=== PATIENT | female | born 1955 | race Caucasian/White ===

== ENCOUNTER 2021-11-13 08:35 | Observation (INO) ==
--- NOTE | 2021-10-19 09:31 | PAT Medication Instructions ---
Medication Instructions Date of Service October 19, 2021 Home Medications adalimumab 40 mg/0.8 mL subcutaneous syringe kit (Humira) 40 mg SUBCUT UD folic acid 1 mg tablet 1 mg PO QAM ibuprofen 800 mg tablet 800 mg PO TID methotrexate sodium 2.5 mg tablet 15 mg PO WK cholecalciferol (vitamin D3) 50 mcg (2,000 unit) tablet (Vitamin D3) 50 mcg PO QAM diclofenac sodium 1 % topical gel 2 g TOPICAL BID PRN zinc 10 mg tablet 22 mg PO QAM ASK your surgeon for instructions ibuprofen 800 mg tablet 800 mg PO TID ASK your prescriber and surgeon adalimumab 40 mg/0.8 mL subcutaneous syringe kit (Humira) 40 mg SUBCUT UD methotrexate sodium 2.5 mg tablet 15 mg PO WK STOP taking 24 hours before surgery diclofenac sodium 1 % topical gel 2 g TOPICAL BID PRN DO NOT take the morning of surgery folic acid 1 mg tablet 1 mg PO QAM cholecalciferol (vitamin D3) 50 mcg (2,000 unit) tablet (Vitamin D3) 50 mcg PO QAM zinc 10 mg tablet 22 mg PO QAM Other Notes If you have any questions please call us at [phone] or [phone] or [phone] or [phone]
--- NOTE | 2021-10-20 11:43 | Anesthesiology Consultation ---
Date of Service October 20, 2021 Assessment & Plan (1) Encounter for pre-operative examination: - Case discussed with Dr. Aquino who advised patient is acceptable risk to proceed with surgery, does not require additional evaluation or testing at this time. - COVID screening: Per assessment on 10/20/2021: Travel screen negative, no known COVID-19 positive contacts or current COVID-19 related symptoms in past 2 weeks. Patient vaccinated. Surgeon arranging preop COVID testing, scheduled 11/11/2021. Awaiting results. Chart Review Chart Review: Acceptable Risk for Surgery and Patient seen in Pre Admission Testing Teaching & Discussion Pre-Anesthesia Teaching/Discussion Notes: Instructed NPO after midnight before surgery, except medications with 15 cc of water. Medication instructions provid ed according to the PAT guidelines. History Surgery Operation Date: 11/13/21 12:15 Proposed Procedures p Left Anterior Total Hip Arthroplasty - Bravo Marcelo, Height/Weight Height: 5 ft 7 in Weight: 87.9 kg Allergies Allergy/AdvReac Type Severity Reaction Status Date / Time latex Allergy Mild REDNESS Verified 10/15/21 09:09 ITCHY WITH GLOVES pseudoephedrine AdvReac Unknown JITTERY, Verified 10/15/21 09:09 [From Sudafe] FAST HEART RATE Medications Home Medications Medication Instructions Recorded Confirmed Last Taken adalimumab 40 mg/0.8 mL 40 mg SUBCUT UD 07/17/21 10/15/21 Unknown subcutaneous syringe kit (Humira) folic acid 1 mg tablet 1 mg PO QAM 07/17/21 10/15/21 Unknown ibuprofen 800 mg tablet 800 mg PO TID 07/17/21 10/15/21 Unknown methotrexate sodium 2.5 mg tablet 15 mg PO WK 07/17/21 10/15/21 Unknown cholecalciferol (vitamin D3) 50 50 mcg PO QAM 10/15/21 10/15/21 Unknown mcg (2,000 unit) tablet (Vitamin D3) diclofenac sodium 1 % topical gel 2 g TOPICAL BID PRN 10/15/21 10/15/21 Unknown zinc 10 mg tablet 22 mg PO QAM 10/15/21 10/15/21 Unknown tramadol 50 mg tablet 50 mg PO Q8H PRN #30 tab 10/20/21 10/20/21 Unknown Past Medical History Medical History (Updated 10/20/21 @ 12:00 by Juana Arango PA-C) Cancer NOT MELANOMA-forehead Cardiac murmur HX-DX'D AGE 19-NO CARDIOLOGY-no murmur per 03/2021 PCP note History of blood transfusion > 40 yrs ago during vaginal delivery Osteoarthritis Psoriatic arthritis 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 Exercise / Class Metabolic Activity III < 4 Walking/Shop/Light housework (SOB with 1 FOS, denies chest pain) Past Family History Family History Brother Family history of diabetes mellitus Sister Family history of diabetes mellitus Mother Family history of diabetes mellitus Past Surgical History Surgical History History of bilateral tubal ligation History of colonoscopy 10 YRS AGO History of knee surgery MENISCUS REPAIR-RIGHT History of tonsillectomy History of tooth extraction Past Anesthesia History No Hx of Anesthesia Complications and No Family Hx of Anesthesia Complications History of PONV No Hx of PONV and No Hx of Motion Sickness Social History Smoking Status: Former smoker Do You Dip or Chew Tobacco: No Smoking End Date: QUIT 1 YR AGO Hx Alcohol Use: Yes Alcohol type: wine alcohol intake frequency: a few times a month Hx Substance Use: No Review of Systems Snoring, denies witnessed apneas or sleep studies. Occasional reflux with certain foods, resolves with TUMS. Patient denies chest pain, fever, chills, cough, wheezing, or palpitations. Physical Exam Vital Signs Vitals BP 146/82 P 74 TEMP 98.4 SP02 99% on RA RESP 17 Physical Full cervical extension range of motion without pain Full TMJ range of motion TMD 3.5 finger breaths Mallampati Score 3 Dentition: intact, missing right upper side, several caps/crowns-one cap on left upper side tooth; denies chipped or loose teeth, implants or bridges Lungs: normal respiratory effort. Clear throughout to auscultation, no adventitious breath sounds Cardiac: regular rate and rhythm, no murmurs noted Carotid arteries: negative bruit bilat Lab Results Anesthesia Preop Results Results Anesthesia Widget: Na 138 mmol/L (136-145) 10/20/21 K 3.5 mmol/L (3.5-5.1) 10/20/21 Cl 105 mmol/L (98-107) 10/20/21 CO2 27 mmol/L (21-32) 10/20/21 BUN 11 mg/dl (6-23) 10/20/21 Creat 0.70 mg/dl (0.6-1.2) 10/20/21 Glucose Level 96 mg/dl (70-99(Fasting)) 10/20/21 PT 10.9 Seconds (9.0-12.0) 10/20/21 PTT 25.4 Seconds (21.0-31.0) 10/20/21 INR 1.0 (0.9-1.1) 10/20/21 Blood Type A Positive 10/20/21 Antibody Screen NEGATIVE 10/20/21 Testing Laboratory Results 10/09/2021 WBC: 6.3 H/H: PLATELETS: 227 Electrocardiogram Date: 10/20/21 NSR, rate 75 bpm Incomplete RBBB Chest X-Ray Date: 10/20/21 FINDINGS: PA and lateral chest radiographs are obtained. No prior studies are available for comparison at the time of dictation. The cardiomediastinal silhouette is unremarkable noting atherosclerotic calcification of the thoracic aorta. There is mild left basilar atelectasis. The lungs and pleural spaces are otherwise clear. There is no pneumothorax. The skeletal structures are osteopenic. The bony thorax appears intact. IMPRESSION: No active disease in the chest.
[~2021-11-13 08:35] MED LIST: ACETAMINOPHEN 500 MG TAB PO SCH; BUPIVACAINE 0.5 % 5 MG/1 ML PF 10ML VIAL ONE; FAMOTIDINE 20 MG TAB PO SCH; GABAPENTIN 300 MG CAP PO SCH; Ketorolac (*for OR use only*) 30 MG, dexAMETHasone 4 MG, KETAMINE HCL (**OR use only) 1... INFIL SCH; LR 500ML BOLUS, THEN 15ML/HR IV SCH; LR 60ML/HR IV SCH; TRANEXAMIC ACID 1,000 MG **IV Intra-op IV SCH; TRANEXAMIC ACID 1,000 MG **IV Pre-op IV SCH; ceFAZolin 2000MG 2,000 MG/15 ML SYR IV SCH; dexAMETHasone 4 MG TAB PO SCH
[2021-11-13] MEDS ORDERED: MIDAZOLAM HCL 1 MG/ML 2ML VIAL ONE ×2 (10:06→11:32)
[2021-11-13] MEDS ORDERED: PROPOFOL IV EMULSION 10 MG/ML 20 ML VIAL IV ONE (10:43)
--- NOTE | 2021-11-13 10:48 | History & Physical Bridge Note ---
Date of Service November 13, 2021 History & Physical Bridge Note I have examined the patient, reviewed the History & Physical and in the interval since the performance of the History & Physical I have noted the following changes of clinical significance: no changes noted
[2021-11-13] MEDS ORDERED: ORTHO JOINT ANESTHETIC ONE (11:01)
--- NOTE | 2021-11-13 12:37 | Operative Report ---
PG Post Operative Report Pre & Post Diagnosis Operation Date: 11/13/21 10:40 Pre-Op Diagnosis: Degenerative Joint Disease Left Hip Post-Op Diagnosis: Degenerative Joint Disease Left Hip I identified the patient and participated in the time-out.: Yes Procedure Operation Date: 11/13/21 10:40 Actual Procedures p Left Anterior Total Hip Arthroplasty(Left) - Bravo Marcelo DO Surgeon Bravo Marcelo DO Employment Director Bravo Donovan PAC Estimated Blood Loss 250 Findings Consistent with Post-Op Diagnosis Specimens Left femoral head Complications none Disposition Disposition: Recovery Room Indications Michelle is a pleasant six 6-year-old female who is been dealing with chronic increasing left hip and groin pain. X-rays and clinical examination are diagnostic for advanced arthritis of the left hip. After failing conservative treatment, she elected proceed with a left anterior total hip arthroplasty. Description of Procedure Implants used I used a ZimmerBiomet total hip arthroplasty system with a size 6 standard offset Avenir Complete stem, a 52 mm G7 cup with a 25mm screw, an E1 polyethylene liner, a 36mm ceramic head with a 0 neck. Blank arrived at the hospital for the above procedure. She was seen in the preoperative holding area and the operative extremity was identified and signed. She was given a spinal anesthetic, a preoperative antibiotic, and TXA. She was then taken back to the operating room and laid on the table in the supine position. She was given basic sedation. The operative leg was secured to a Puristst leg positioner. The hip was then prepped and draped in sterile fas hion. A timeout was done and the patient and the operative extremity was properly identified. An anterior approach was used. Dissection was taken down through the fascia and the tensor muscle belly was retracted laterally and the rectus was retracted medially. The circumflex vessels were identified and ligated. The capsule was then incised and tagged for later repair. The femoral neck was then cut and the femoral head was removed. The acetabulum was exposed. Time was spent doing a complete circumferential labral release. Sequential reaming of the acetabulum up to a size 51 reamer was done. Final reamings were done under fluoroscopy to ensure appropriate version. A Biomet 52mm G7 cup was then impacted into place. A single 25 mm screw was placed. The E1 polyethylene liner was then snapped into place. Surrounding soft tissues were then injected with 100 cc of an orthopedic pain control cocktail. The proximal femur was then exposed. Sequential broaching up to a size 6 broach was done. Off that broach a size 36 head with a 0 neck was trialed. The hip was reduced and fluoroscopic images showed anatomic alignment of the implants in acceptable length. The broach was removed. The final size 6 standard offset Avenir Complete stem was then impacted into place. A ceramic 36mm head with a 0 neck was then impacted onto the stem and the hip was reduced. Final fluoroscopi c images showed anatomic alignment of the hip. The capsule was then closed with #1 Vicryl suture. A dilute betadyne lavage was then done for 3 minutes. The joint was then irrigated with normal saline solution. The fascia was closed with #1 PDS suture. Skin was closed with 2-0 Vicryl, annie, and a Silverlon dressing. She was then transferred to a hospital bed and taken to the post anesthesia care unit in stable condition. She tolerated the procedure well. Bravo Donovan PA-C, was present for the entire procedure. He was critical for patient positioning, prepping, draping, retraction exposure, wound closure and application of sterile dressing. I attest to the content of the Intraoperative Record and any orders documented therein. Any exceptions are noted below.
--- NOTE | 2021-11-13 13:23 | Anesthesiology Progress Note ---
Date of Service November 13, 2021 Anesthesia Post Procedure Vital Signs Vital Signs: Temp Pulse Pulse Resp BP BP Pulse Ox 11/13/21 13:20 61 18 137/77 99 11/13/21 13:10 65 17 130/80 100 11/13/21 13:00 66 18 122/79 100 11/13/21 12:54 36.2 C L 71 23 128/84 100 11/13/21 09:45 36.3 C L 66 18 160/93 H 100 Pain Intensity Left Hip: Pain Intensity: 5 Transfer of Care Handoff Completed per policy Notes Mental Status: alert / awake / arousable and participated in evaluation Patient Amnestic to Procedure: Yes Nausea / Vomiting: adequately controlled Pain: adequately controlled Airway Patency, RR, SpO2: stable & adequate BP & HR: stable & adequate Hydration State: stable & adequate Anesthetic Complications: no major complications apparent and Pt Satisfied with anesthetic care
--- NOTE | 2021-11-13 13:36 | XRay Report ---
AP PELVIS, CROSSTABLE LATERAL LEFT HIP History: Left total hip arthroplasty. Degenerative arthritis. Postop. FINDINGS: The patient is status post a left total hip arthroplasty. The hardware is intact. No fractu re or dislocation. Skin annie are in place. IMPRESSION: Left total hip arthroplasty. No evidence for hardware complication. ACT 112: Negative or not required by law. Electronically signed by: Filipe Mcarthur M.D. 11/13/2021 1:35 PM
--- NOTE | 2021-11-13 14:05 | Fluoroscopy Report ---
INTRAOPERATIVE RADIOGRAPHS CLINICAL HISTORY: Left hip arthroplasty. Fluoroscopy time: 27 seconds. FINDINGS: 2 spot fluoroscopic views of the left hip are presented. The first image shows surgical abs ence of the left femoral head with the acetabular cup in place. The second image shows a bipolar left hip arthroplasty in near anatomic alignment. No evidence of acute fracture is seen on these fluorosc opic views. IMPRESSION: Intraoperative image from a left hip arthroplasty procedure as above. Electronically signed by: Minesh Blake M.D. 11/13/2021 2:03 PM
[2021-11-13] MEDS ORDERED: ONDANSETRON INJ 2 MG/ML 2 ML VIAL IV PRN (14:51)
[2021-11-13] MEDS ORDERED: MAGNESIUM HYDROXIDE SUSP 30 ML UDC PO PRN (14:51)
[2021-11-13] MEDS ORDERED: bisacodyL 10 MG SUPP PR PRN (14:51)
[2021-11-13] MEDS ORDERED: HYDROmorphone INJ 0.5 MG/0.5 ML SYR IV PRN (14:51)
[2021-11-13] MEDS ORDERED: NALOXONE HCL 0.4 MG/1 ML VIAL/CARP IV PRN (14:51)
[2021-11-13] MEDS ORDERED: KETOROLAC TROMETHAMINE 15 MG/ML VIAL IV SCH (14:51)
[2021-11-13] MEDS ORDERED: METOCLOPRAMIDE HCL INJ 5 MG/ML 2 ML VIAL IV PRN (14:51)
[2021-11-13] MEDS: SODIUM CHLORIDE 0.9% 1000ML 1,000 ML IV SCH (16:20)
[2021-11-13] MEDS: ACETAMINOPHEN 500 MG TAB PO SCH ×2 (16:20→23:07)
[2021-11-13] MEDS ORDERED: metHOTREXate sodium 2.5 MG TAB PO SCH (16:30)
[2021-11-13] MEDS: ceFAZolin 2000MG 2,000 MG/15 ML SYR IV SCH (18:37)
[2021-11-13] MEDS ORDERED: SENNA 8.6 MG TAB PO SCH (21:00)
[2021-11-13] MEDS: oxyCODONE HCL IR 5 MG TAB (IMMEDIATE RELEASE) PO PRN (21:24)
[2021-11-13] MEDS: DOCUSATE SODIUM 100 MG CAP PO SCH (21:25)
[2021-11-13] MEDS: ASPIRIN 81 MG ECTAB PO SCH (21:25)
[2021-11-14] MEDS: ceFAZolin 2000MG 2,000 MG/15 ML SYR IV SCH (02:39)
[2021-11-14] MEDS: SODIUM CHLORIDE 0.9% 1000ML 1,000 ML IV SCH (03:15)
[2021-11-14] MEDS: oxyCODONE HCL IR 5 MG TAB (IMMEDIATE RELEASE) PO PRN ×2 (05:37→10:02)
[2021-11-14] MEDS: ACETAMINOPHEN 500 MG TAB PO SCH (05:38)
--- NOTE | 2021-11-14 06:54 | Orthopedic Progress Note ---
Date of Service November 14, 2021 Assessment & Plan (1) Status post left hip replacement: Overall she is doing very well. She is not any much pain in the left hip. She will be seen by physical therapy today for ambulation and range of motion exercises. She is on aspirin for DVT prophylaxis. She can be discharged home later today. She will follow-up with orthopedics in 2 weeks. Kenny Mcmillan was seen and examined at bedside this morning. Overall she is doing very well. She has been up and ambulating to the bathroom and into the hallways. She has no complaints. Review of Systems All systems reviewed & are unremarkable except as noted in HPI & below. Physical Exam On physical examination of the left hip, the dressing is clean and dry. Her leg lengths are equal. She has active dorsiflexion and plantarflexion of her left ankle.. Results & Data Results & Data Laboratory Results . Diagnostic Findings Postoperative x-rays of the left hip show the prosthesis to be in anatomic alignment without any evidence of fracture, dislocation, or loosening.. PG Care Time/CCT Total # of Minutes Spent Total Time Spent with Patient: Total time spent is greater than 50% in coordination of care (as documented) at patient's floor/unit and/or counseling patient: Coding Level of Care Code 88636 Post Operative Follow-Up Diagnoses Status post left hip replacement Z96.642
--- NOTE | 2021-11-14 06:55 | Discharge Summary ---
Date of Service November 14, 2021 Principal Diagnosis Same as "Discharge Diagnosis" noted below under Discharge Instructions. Discharge Exam On physical examination of the left hip, the dressing is clean and dry. Her leg lengths are equal. She has active dorsiflexion and plantarflexion of her left ankle.. Discharge Data Procedures Performed Operation Date: 11/13/21 10:40 Actual Procedures p Left Anterior Total Hip Arthroplasty(Left) - Bravo Marcelo DO Ordered Studies 11/13/21 10:40 FL hip LT 1V Routine Hospital Course (1) Status post left hip replacement: On November 13, 2021 Blank arrived at [facility] and underwent a left hip replacement without complication. She had a spinal anesthetic. Postoperatively she was started on aspirin for DVT prophylaxis and transferred to the general orthopedic floors. Her hospital course was uneventful. On postop day #1, her vital signs are stable and her pain was well controlled. She was able to participate well with physical therapy doing ambulation and range of motion exercises. She was then discharged home. She will follow-up with orthopedics in 2 weeks. PG Care Time/CCT Total # of Minutes Spent Total Time Spent with Patient: Total time spent is greater than 50% in coordination of care (as documented) at patient's floor/unit and/or counseling patient: Discharge Plan Discharge Items Patient Disposition: Home - Home Health Services Reason For Visit: Degenerative Joint Disease Left Hip Discharge Diagnosis: Left hip replacement Activity: As commented below Non-emergency contact: Surgeon Call non-emergency contact if: your wound has increased redness and your wound has increased drainage Follow-up/Referrals: Anita Rao D.O. [Primary Care Provider] - Diet: Regular Addtl Attending Provider Instructions: Activity and Therapy Recommendations: * If you are using [facility] then therapy will be provided at your home until they feel you have accomplished all of your goals. * If you are using [facility] then Physical Therapy will be provided until they feel you are ready to start Outpatient Physical Therapy. * If you are not using home therapy then Outpatient Physical Therapy should start about 3-5 days from your day of surgery. Therapy will last about 6-10 weeks * You were shown a series of exercises in the hospital. Do these exercises three times each day including the exercises you were shown in physical therapy. * Get up and walk several times each day.~ For the first four weeks, try not to stand or walk for more than one hour at a time. If you do stand or walk for more than one hour, you will not hurt anything, but your leg will likely swell.~~ * As you feel comfortable, you may change from the walker or crutches to a cane and~then to independent walking. Medications: * Narcotic You will likely be sent home from the hospital with a prescription for the narcotic pain medication that worked best throughout your stay. * Aspirin Most patients will be required to take Aspirin 81mg twice a day for 6 weeks after surgery. This is obtained [id number] and a prescription is not necessary. * Other medications may be prescribed for specific circumstances. If you have any questions, please call the office at . * Resume previous home medications unless otherwise instructed TEDs/Elastic Stockings: The white elastic stockings help limit swelling and prevent blood clots from forming in your legs. The more you wear them, the more they work. Wear them for six weeks. Dressing Care: Leave the Silverlon dressing in place for 7 days. After 7 days you may remove the dressing. If the incision is not draining then you may leave the annie open to air. If there is a little bit of drainage or if the annie are getting stuck on your clothing then cover the incision with a dry dressing. The annie will be removed at your 2 week follow-up appointment. Showering: You may shower with the Silverlon dressing in place. Do not let the shower spray hit the dressing directly. Pat the Silverlon dressing dry. If the dressing becomes wet underneath, then simply remove the dressing. Keep the incision dry until you are 7 days out from the day of surgery. After 7 days you may remove the Silverlon dressing and shower with the annie exposed. Let soapy water run over the annie and pat them dry. Do not scrub or soak the incision. Things To Watch For: * Drainage from the incision site that occurs more than one week after your surgery. * Increased redness at the incision site. * Fever above 102 degrees Fahrenheit. * Unusual chest pain or shortness of breath. * Call [facility] at with any of the above problems Follow-Up Visit: Follow-up with Dr. Marcelo's PA (Bravo Donovan) 2-3 weeks after your day of surgery. He will remove your annie and answer any questions. If you have any additional questions or concerns, Dr Marcelo is usually in the office at the same time and will be available An appointment was probably scheduled when you signed-up for surgery in the office. If you have any questions call Office Instructions: More detailed instructions as well as Frequently Asked Questions were provided in a folder by our office when you signed-up for surgery. Please review these instructions when you get home. If you have any further questions or concerns, please feel free to call the office at [phone] Pending Studies at Discharge: No Stand-Alone Forms: My [facility] Medications and DC Order Prescriptions: New oxycodone 5 mg Tablet 5 mg PO Q4H PRN (Reason: pain) Qty: 30 RF: 0 aspirin 81 mg Tablet,Delayed Release (Dr/Ec) 81 mg PO BID Qty: 0 RF: 0 Continued tramadol 50 mg tablet 50 mg PO Q8H PRN (Reason: pain) Qty: 30 RF: 0 ibuprofen 800 mg Tablet 800 mg PO TID RF: 0 methotrexate sodium 2.5 mg Tablet 15 mg PO WK RF: 0 folic acid 1 mg Tablet 1 mg PO QAM RF: 0 Humira 40 mg/0.8 mL Syringe Kit 40 mg SUBCUT UD RF: 0 zinc 10 mg Tablet 22 mg PO QAM RF: 0 cholecalciferol (vitamin D3) [Vitamin D3] 50 mcg (2,000 unit) Tablet 50 mcg PO QAM RF: 0 diclofenac sodium [Voltaren] 1 % Gel 2 g TOPICAL BID PRN (Reason: Pain) RF: 0 Discharge Orders: Discharge Order (Routine); Ordered 11/14/21 Ordered By: Bravo Marcelo Admission Data Admit Date/Time: 11/13/21 13:02 Attending Provider: Bravo Marcelo Admit Provider: Bravo Marcelo Primary Care Provider: Anita Rao
[2021-11-14] MEDS: ASPIRIN 81 MG ECTAB PO SCH (07:45)
[2021-11-14] MEDS: DOCUSATE SODIUM 100 MG CAP PO SCH (07:45)
[2021-11-14] MEDS ORDERED: dexAMETHasone 4 MG TAB PO SCH (08:00)
[2021-11-14] MEDS ORDERED: FOLIC ACID 1 MG TAB PO SCH (09:00)
[2021-11-14] MEDS ORDERED: MULTIVITAMIN TAB PO SCH (09:00)
== END 2021-11-14 12:30 | disposition home health service (06) ==
LOC: 3E 08:35 → ASU 08:35

== ENCOUNTER 2022-10-22 10:06 | Observation (INO) ==
--- NOTE | 2022-09-20 10:46 | PAT Medication Instructions ---
Medication Instructions Date of Service September 20, 2022 Home Medications Medication Instructions Recorded tramadol 50 mg tablet 50 mg PO Q8H PRN pain #30 tabs 10/20/21 oxycodone 5 mg tablet 5 mg PO Q4H PRN pain #30 tabs 11/14/21 adalimumab 40 mg/0.8 mL subcutaneous syringe kit (Humira) 40 mg subcut UD ibuprofen 800 mg tablet 800 mg PO TID cholecalciferol (vitamin D3) 50 mcg (2,000 unit) tablet (Vitamin D3) 50 mcg PO QAM zinc 10 mg tablet 22 mg PO QAM tramadol 50 mg tablet 50 mg PO Q8H PRN pain oxycodone 5 mg tablet 5 mg PO Q4H PRN pain multivitamin 1 tab PO QAM ASK your surgeon for instructions ibuprofen 800 mg tablet 800 mg PO TID ASK your prescriber and surgeon adalimumab 40 mg/0.8 mL subcutaneous syringe kit (Humira) 40 mg subcut UD DO NOT take the morning of surgery cholecalciferol (vitamin D3) 50 mcg (2,000 unit) tablet (Vitamin D3) 50 mcg PO QAM zinc 10 mg tablet 22 mg PO QAM multivitamin 1 tab PO QAM Take morning of surgery With a small sip of water, OTHERWISE NOTHING TO EAT OR DRINK AFTER MIDNIGHT: tramadol 50 mg tablet 50 mg PO Q8H PRN pain (if needed) oxycodone 5 mg tablet 5 mg PO Q4H PRN pain (if needed) Take evening before surgery tramadol 50 mg tablet 50 mg PO Q8H PRN pain (if needed) oxycodone 5 mg tablet 5 mg PO Q4H PRN pain (if needed) Other Notes If you have any questions please call us at [phone] or [phone] or [phone] or [phone]
--- NOTE | 2022-09-28 11:16 | Anesthesiology Consultation ---
Date of Service September 28, 2022 Assessment & Plan (1) Encounter for pre-operative examination: - COVID screening: Per assessment on 09/28: No known COVID-19 positive contacts or current COVID-19 related symptoms. Travel screen negative. Patient vaccinated. At surgeon discretion if preop Covid testing being done. - S/P Left anterior total hip replacement (11/13/21): SAB at L4-5 (x1 attempt) at [facility]. No issues noted per post-op anesthesia progress note. - Outpatient joint assessment: Pt currently scheduled for inpatient pathway. If surgeon requests review for outpatient joint pathway, patient is an acceptable candidate for outpatient joint program from anesthesia standpoint pending surgeon's office assessment that patient is motivated, has good support and completes Same Day Joint Program preop requirements. Chart Review Chart Review: Acceptable Risk for Surgery and Patient seen in Pre Admission Testing Teaching & Discussion Pre-Anesthesia Teaching/Discussion Notes: Instructed NPO after midnight before surgery,except medications with 15 cc of water. Medication instructions provided according to the PAT guidelines. History Surgery Operation Date: 10/22/22 09:20 Proposed Procedures p Right Total Knee Arthroplasty - Bravo Marcelo, DO Height/Weight Height: 5 ft 7 in Weight: 89.3 kg Allergies Allergy/AdvReac Type Severity Reaction Status Date / Time latex Allergy Mild REDNESS Verified 09/15/22 09:50 ITCHY WITH GLOVES pseudoephedrine AdvReac Unknown JITTERY, Verified 09/15/22 09:50 [From [facility]] FAST HEART RATE Medications Home Medications Medication Instructions Recorded Confirmed Last Taken adalimumab 40 mg/0.8 mL 40 mg subcut UD 07/17/21 09/15/22 10/30/21 subcutaneous syringe kit (Humira) ibuprofen 800 mg tablet 800 mg PO TID 07/17/21 09/15/22 11/06/21 cholecalciferol (vitamin D3) 50 50 mcg PO QAM 10/15/21 09/15/22 11/06/21 mcg (2,000 unit) tablet (Vitamin D3) zinc 10 mg tablet 22 mg PO QAM 10/15/21 09/15/22 11/10/21 oxycodone 5 mg tablet 5 mg PO Q4H PRN pain #30 tabs 11/14/21 09/15/22 Unknown multivitamin 1 tab PO QAM 09/15/22 09/15/22 Unknown tramadol 50 mg tablet 50 mg PO Q8H PRN pain #30 tabs 09/28/22 09/28/22 Unknown Past Medical History Medical History Cancer Resection from forehead ("not melanoma") Cardiac murmur Dx age 19, no murmur noted per 10/2021 + 09/2022 anesthesia preop evaluations Cataract To have cataracts procedure 10/2022 (patient made surgeon aware of proximity) History of blood transfusion > 40 yrs ago during vaginal delivery Hx of eye disorder Retinal swelling 01/2022- under surveillance Osteoarthritis Psoriatic arthritis Follows with rheum (Dr. Luis/zAam) Reason for Humira Exercise / Class Metabolic Activity III < 4 Walking/Shop/Light housework (one FS (no CP, + SOB)) Past Family History Family History Brother Family history of diabetes mellitus Sister Family history of diabetes mellitus Mother Family history of diabetes mellitus Past Surgical History Surgical History History of bilateral tubal ligation History of colonoscopy History of knee surgery MENISCUS REPAIR-RIGHT History of tonsillectomy History of tooth extraction Status post left hip replacement Left anterior total hip replacement (11/13/21): SAB at L4-5 (x1 attempt) at [facility]. No issues noted per post-op anesthesia progress note. Past Anesthesia History No Hx of Anesthesia Complications and No Family Hx of Anesthesia Complications History of PONV No Hx of PONV and No Hx of Motion Sickness Social History Smoking Status: Former smoker tobacco type: cigarettes Smoking cigarettes per day: Quit 2020 Do You Dip or Chew Tobacco: No Hx Alcohol Use: Yes alcohol intake frequency: holidays/special occasions only Hx Substance Use: No substance use type: does not use Review of Systems Patient denies chest pain, shortness of breath, fever, chills, cough, wheezing, palpitations. Physical Exam Vital Signs VITALS BP 159/97 > 146/86 with manual recheck (per patient, BP typically 140s/80s) P 78 TEMP 98.3 SP02 97%RA RESP 16 PHYSICAL Full cervical extension range of motion. Full TMJ range of motion. TMD 3 finger breaths Mallampati Score 3 Dentition: missing sides/lower, upper front left side incisor pin Lungs: clear throughout to auscultation Cardiac: regular rate and rhythm, no murmurs noted Spine: normal Carotid arteries: negative bruit Extremities: no edema Lab Results Anesthesia Preop Results Results Anesthesia Widget: WBC 8.79 K/ul (4.8-10.8) 09/28/22 Hgb 12.1 g/dl (12.0-16.0) 09/28/22 Hct 35.7 % (37.0-47.0) L 09/28/22 Plt 225 K/uL (130-400) 09/28/22 Na 136 mmol/L (136-145) 09/28/22 K 3.7 mmol/L (3.5-5.1) 09/28/22 Cl 103 mmol/L (98-107) 09/28/22 CO2 27 mmol/L (21-32) 09/28/22 BUN 12 mg/dl (6-23) 09/28/22 Creat 0.73 mg/dl (0.6-1.2) 09/28/22 Glucose Level 92 mg/dl (70-99(Fasting)) 09/28/22 PT 10.5 Seconds (9.0-12.0) 09/28/22 PTT 26.3 Seconds (21.0-31.0) 09/28/22 INR 1.0 (0.9-1.1) 09/28/22 Blood Type A Positive 09/28/22 Antibody Screen NEGATIVE 09/28/22 Testing Electrocardiogram Date: 09/28/22 NSR at 81bpm. iRBBB. Chest X-Ray Date: 09/28/22 FINDINGS: No lines and tubes are seen. Calcified aortic knob is seen. Trace atelectasis is seen in the lung bases. No evidence of pleural effusion or pneumothorax. IMPRESSION: No acute chest disease. COVID-19 Risk Screen Screening Information COVID-19 Screen Date: 09/28/22 Exposure 21 Days Family/Household +COVID Last 21 Days: No Exposure 10 Days Any COVID Exposure Last 10 Days: No Symptoms Last 10 Days Experienced COVID Sx Last 10 Days: No + COVID 0-90 Days COVID + in Last 0-90 Days: No
[~2022-10-22 10:06] MED LIST changes: +EPINEPHrine INJ 1 MG/ML AMP ONE; -Ketorolac (*for OR use only*) 30 MG, dexAMETHasone 4 MG, KETAMINE HCL (**OR use only) 1... INFIL SCH; +ORTHO JOINT MIX INFIL SCH; +ROPIVACAINE 0.5% 5 MG/ML 30 ML VIAL ONE
[2022-10-22] MEDS ORDERED: MIDAZOLAM HCL 1 MG/ML 2ML VIAL ONE (11:04)
[2022-10-22] MEDS ORDERED: PROPOFOL IV EMULSION 10 MG/ML 20 ML VIAL IV ONE ×2 (11:04→13:24)
[2022-10-22] MEDS ORDERED: fentaNYL citrate PF 100 MCG/2 ML VIAL ONE (11:04)
[2022-10-22] MEDS ORDERED: LIDOCAINE 2% MPF LOCAL 5 ML VIAL ONE (11:04)
--- NOTE | 2022-10-22 11:44 | History & Physical Bridge Note ---
Date of Service October 22, 2022 History & Physical Bridge Note I have examined the patient, reviewed the History & Physical and in the interval since the performance of the History & Physical I have noted the following changes of clinical significance: no changes noted
[2022-10-22] MEDS ORDERED: ONDANSETRON INJ 2 MG/ML 2 ML VIAL IV PRN ×2 (12:15→16:23)
[2022-10-22] MEDS ORDERED: fentaNYL citrate PF 100 MCG/2 ML VIAL IV PRN (12:15)
[2022-10-22] MEDS ORDERED: ATROPINE SULFATE 0.1 MG/ML 10ML SYR IV PRN (12:15)
[2022-10-22] MEDS ORDERED: ePHEDrine sulfate 50 MG/ML AMP IV PRN (12:15)
[2022-10-22] MEDS ORDERED: ORTHO JOINT ANESTHETIC ONE (12:16)
--- NOTE | 2022-10-22 14:32 | Operative Report ---
PG Post Operative Report Pre & Post Diagnosis Operation Date: 10/22/22 12:55 Pre-Op Diagnosis: Right Knee Osteoarthritis Post-Op Diagnosis: Right Knee Osteoarthritis I identified the patient and participated in the time-out.: Yes Procedure Operation Date: 10/22/22 12:55 Actual Procedures p Right Total Knee Arthroplasty(Right) - Bravo Marcelo DO Surgeon Bravo Marcelo DO Project Geophysicist Jeffrey Lizarraga PA-C Estimated Blood Loss 30 Findings Consistent with Post-Op Diagnosis Specimens Right femoral tibial bone Description of Procedure Implants used: I used a Tommie Persona total knee arthroplasty system with a size 5 standard femur, D tibia, 31 oval patella, and a size 13 medial congruent polyethylene bearing. All components were cemented in place with Biomet cement. Blank arrived [facility] for the above procedure. She was seen in the preoperative holding area and the operative extremity was identified and signed. She was given a preoperative antibiotic, TXA, a spinal anesthetic and an adductor nerve block. She was taken back to the operating room and laid on the table in supine position. She was given basic sedation. The operative knee was then prepped and draped in sterile fashion. A timeout was done, and the patient and the operative extremity was properly identified. A midline incision was made directly over the patella. Dissection was taken down to the extensor mechanism. A midvastus arthrotomy was used. The medial retinaculum was released and the fat pad was mostly excised. The knee was flexed and the ACL, PCL, and meniscus were removed. A drill was sent down the center of the femoral canal followed by an intramedullary kelly. Off that kelly a distal femoral cutting block was placed. 9 mm was resected off the distal femur at 5 of valgus. A posterior referencing AP sizing guide was then placed on the distal femur. The femur measured to be a size 5. 2 drill holes were placed in 3 of external rotation. A 4-in-1 cutting block was then impacted into place. Anterior, posterior, and chamfer cuts were then made. The proximal tibia was then exposed. An external tibial alignment guide was placed. A tibial cut guide was then anchored in place and the proximal tibia was then resected. The posterior aspect of the knee was then opened up and any additional meniscus fragments and osteophytes were removed. The tibia measured to be a size D. The tibial plate was then placed in the appropriate rotation and the tibia was drilled and punched. Trial components were then placed. I used a size 13 medial congruent polyethylene insert. The knee was brought through a full range of motion and felt to be stable. The peg holes for the femoral component were then drilled. The patella was then everted and 9 mm was resected off the posterior aspect of the patella. The patella measured to be a size 31 oval. 3 peg holes were then drilled. A trial patella was placed. The knee was once again brought through a full range of motion and felt to be stable. Trial components were then removed. The surrounding soft tissues were injected with 100 cc of an orthopedic pain control cocktail. All components were then cemented into place with Biomet cement. The final polyethylene insert was then snapped into place. Once cement was dry the tourniquet was deflated. Hemostasis was obtained. A dilute betadyne lavage was then done for 3 minutes. The joint was then irrigated with normal saline solution. The midvastus arthrotomy was then closed with #1 Vicryl suture. The skin was closed with 2-0 Vicryl, 3-0V lock suture, and annie. A soft compressive dressing was placed. She was then transferred to a hospital bed and taken to the postanesthesia care unit in stable condition. She tolerated the procedure well. Jeffrey Lizarraga PA-C, was present for the entire procedure. He was critical for patient positioning, prepping, draping, retraction exposure, wound closure and application of sterile dressing. I attest to the content of the Intraoperative Record and any orders documented therein. Any exceptions are noted below.
--- NOTE | 2022-10-22 15:27 | XRay Report ---
TWO VIEWS RIGHT KNEE CLINICAL HISTORY: Postoperative examination. FINDINGS: AP and crosstable lateral portable views of the right knee are obtained. A right knee arthr oplasty is in near anatomic alignment. There has been undersurface remodeling of the patella. No acut e fracture is seen. There are expected postoperative changes around the knee including skin clips, so ft tissue edema, and subcutaneous gas. IMPRESSION: Expected postoperative changes status post right knee arthroplasty. No acute fracture is seen. ACT 112: Negative or not required by law. Electronically signed by: Minesh Blake M.D. 10/22/2022 3:25 PM
--- NOTE | 2022-10-22 15:58 | Anesthesiology Progress Note ---
Date of Service October 22, 2022 Anesthesia Post Procedure Vital Signs Vital Signs: Temp Pulse Pulse Resp BP Pulse Ox O2 Del Method 10/22/22 15:40 61 16 165/81 H 95 Room Air 10/22/22 15:10 73 24 161/79 H 94 Room Air 10/22/22 15:50 72 15 160/87 H 94 Room Air 10/22/22 15:30 66 20 162/89 H 96 Room Air 10/22/22 15:20 67 19 166/90 H 94 Room Air 10/22/22 15:00 78 19 156/78 H 94 Room Air 10/22/22 14:50 36.3 C L 87 17 148/73 H 93 Room Air 10/22/22 10:40 36.5 C 78 20 178/94 H 98 Room Air Pain Intensity Right Knee: Pain Intensity: 10 Transfer of Care Handoff Completed per policy Notes Mental Status: alert / awake / arousable and participated in evaluation Patient Amnestic to Procedure: Yes Nausea / Vomiting: adequately controlled Pain: adequately controlled Airway Patency, RR, SpO2: stable & adequate BP & HR: stable & adequate Hydration State: stable & adequate Anesthetic Complications: no major complications apparent and Pt Satisfied with anesthetic care
[2022-10-22] MEDS ORDERED: METOCLOPRAMIDE HCL INJ 5 MG/ML 2 ML VIAL IV PRN (16:23)
[2022-10-22] MEDS ORDERED: NALOXONE HCL 0.4 MG/1 ML VIAL/CARP IV PRN (16:23)
[2022-10-22] MEDS ORDERED: bisacodyL 10 MG SUPP PR PRN (16:23)
[2022-10-22] MEDS ORDERED: MAGNESIUM HYDROXIDE SUSP 30 ML UDC PO PRN (16:23)
[2022-10-22] MEDS: KETOROLAC TROMETHAMINE 15 MG/ML VIAL IV SCH ×2 (17:21→23:27)
[2022-10-22] MEDS: SODIUM CHLORIDE 0.9% 1000ML 1,000 ML IV SCH (17:21)
[2022-10-22] MEDS: oxyCODONE HCL IR 5 MG TAB (IMMEDIATE RELEASE) PO PRN ×2 (19:41→23:47)
[2022-10-22] MEDS: ASPIRIN 81 MG ECTAB PO SCH (19:43)
[2022-10-22] MEDS: DOCUSATE SODIUM 100 MG CAP PO SCH (19:44)
[2022-10-22] MEDS: ceFAZolin 2000MG 2,000 MG/15 ML SYR IV SCH (19:44)
[2022-10-22] MEDS ORDERED: SENNA 8.6 MG TAB PO SCH (21:00)
[2022-10-23] MEDS: oxyCODONE HCL IR 5 MG TAB (IMMEDIATE RELEASE) PO PRN ×2 (03:27→08:55)
[2022-10-23] MEDS: SODIUM CHLORIDE 0.9% 1000ML 1,000 ML IV SCH (03:30)
[2022-10-23] MEDS: ceFAZolin 2000MG 2,000 MG/15 ML SYR IV SCH (04:39)
[2022-10-23] MEDS: KETOROLAC TROMETHAMINE 15 MG/ML VIAL IV SCH ×2 (04:41→10:49)
--- NOTE | 2022-10-23 07:45 | Orthopedic Progress Note ---
Date of Service October 23, 2022 Assessment & Plan (1) Status post right knee replacement: Overall she is doing very well. She is not having much pain in the right knee. She will be seen by physical therapy today for ambulation and range of motion exercises. She is on aspirin for DVT prophylaxis. She can be discharged home later today. She will follow-up with orthopedics in 2 weeks. Subjective Blank was seen and examined at bedside this morning. Overall she is doing very well. She is not having much pain in the right knee. She has been up and ambulating to the bathroom. She has no complaints.. Review of Systems All systems reviewed & are unremarkable except as noted in HPI & below. Physical Exam On physical examination the right knee, the dressing is clean and dry. Her leg is out full extension. She has active dorsiflexion plantarflexion of her right ankle.. Results & Data Results & Data Laboratory Results . Diagnostic Findings Postoperative x-rays of the right knee show the prosthesis to be in anatomic alignment without any evidence of fracture, screws, or loosening. PG Care Time/CCT Total # of Minutes Spent Total Time Spent with Patient: Total time spent is greater than 50% in coordination of care (as documented) at patient's floor/unit and/or counseling patient: Coding Level of Care Code 23232 Post Operative Follow-Up Diagnoses Status post right knee replacement Z96.651
--- NOTE | 2022-10-23 07:46 | Discharge Summary ---
Date of Service October 23, 2022 Principal Diagnosis Same as "Discharge Diagnosis" noted below under Discharge Instructions. Discharge Exam On physical examination the right knee, the dressing is clean and dry. Her leg is out full extension. She has active dorsiflexion plantarflexion of her right ankle.. Discharge Data Procedures Performed Operation Date: 10/22/22 12:55 Actual Procedures p Right Total Knee Arthroplasty(Right) - Bravo Marcelo DO Ordered Studies 10/22/22 05:00 US - OR guided needle placemen Routine Hospital Course (1) Status post right knee replacement: On October 22, 2022 Michelle arrived at [facility] and underwent a right knee replaced without complication. She had a spinal anesthetic. Postoperatively she was started on aspirin for DVT prophylaxis and transferred to the general orthopedic floors. Her hospital course was uneventful. On postop day #1, her vital signs were stable and her pain was well controlled. She was able to participate well with physical therapy doing ambulation and range of motion exercises. She was then discharged home. She will follow-up with orthopedics in 2 weeks. PG Care Time/CCT Total # of Minutes Spent Total Time Spent with Patient: Total time spent is greater than 50% in coordination of care (as documented) at patient's floor/unit and/or counseling patient: Discharge Plan Discharge Items Patient Disposition: Home - Home Health Services Reason For Visit: POST OP Discharge Diagnosis: Right knee replacement Activity: Resume your previous activity Non-emergency contact: Surgeon Call non-emergency contact if: your wound has increased redness and your wound has increased drainage Follow-up/Referrals: Anita Rao D.O. [Primary Care Provider] - Diet: Regular Addtl Attending Provider Instructions: Activity and Therapy Recommendations: * If you are using [facility] then therapy will be provided at your home until they feel you have accomplished all of your goals. * If you are using [facility] then Physical Therapy will be provided until they feel you are ready to start Outpatient Physical Therapy. * If you are not using home therapy then Outpatient Physical Therapy should start about 3-5 days from your day of surgery. Therapy will last about 6-10 weeks * It is important not to put a pillow under your knee when you are relaxing or sleeping. It is just as important to make sure you are getting your knee perfectly straight as it is to regain your knee bend. * You were shown a series of exercises in the hospital. Do these exercises three times each day including the exercises you were shown in physical therapy. * Get up and walk several times each day. For the first four weeks, try not to stand or walk for more than one hour at a time. If you do stand or walk for more than one hour, you will not hurt anything, but your leg will likely swell. * As you feel comfortable, you may change from the walker or crutches to a cane and then to independent walking. Medications: * Narcotic You will likely be sent home from the hospital with a prescription for the narcotic pain medication that worked best throughout your stay. * Aspirin Most patients will be required to take Aspirin 81mg twice a day for 6 weeks after surgery. This is obtained [id number] and a prescription is not necessary. * Other medications may be prescribed for specific circumstances. If you have any questions, please call the office at . * Resume previous home medications unless otherwise instructed TEDs/Elastic Stockings: The white elastic stockings help limit swelling and prevent blood clots from forming in your legs.~ The more you wear them, the more they work. Wear them for six weeks. Dressing Care: The dressing can be changed after physical therapy on postop day #1. Daily dry dressing changes for a few days, especially if the incision is still draining some. If the incision is not draining then you may leave the annie open to air. If there is a little bit of drainage or if the annie are getting stuck on your clothing then cover the incision with a dry dressing. The annie will be removed at your 2 week follow-up appointment. Showering: You may shower 5 days from the day of surgery as long as the incision is no longer draining. You may shower with the annie exposed. Let soapy water run over the annie and pat them dry. Do not scrub or soak the incision. Things To Watch For: * Drainage from the incision site that occurs more than one week after your surgery. * Increased redness at the incision site. * Fever above 102 degrees Fahrenheit. * Unusual chest pain or shortness of breath. * Call [facility] at with any of the above problems Follow-Up Visit: Follow-up with Dr. Marcelo's PA (Bravo Donovan) 2-3 weeks after your day of surgery. He will remove your annie and answer any questions. If you have any additional questions or concerns, Dr Marcelo is usually in the office at the same time and will be available An appointment was probably scheduled when you signed-up for surgery in the office. If you have any questions call Office Instructions: More detailed instructions as well as Frequently Asked Questions were provided in a folder by our office when you signed-up for surgery. Please review these instructions when you get home. If you have any further questions or concerns, please feel free to call the office at [phone] Pending Studies at Discharge: No Stand-Alone Forms: My [facility] Medications and DC Order Prescriptions: New aspirin 81 mg Tablet,Delayed Release (Dr/Ec) 81 mg PO BID 42 Days Qty: 84 0RF oxycodone-acetaminophen 5-325 mg tablet 1 tab PO Q6H PRN (Reason: pain) Qty: 30 0RF Continued tramadol 50 mg tablet 50 mg PO Q8H PRN (Reason: pain) Qty: 30 0RF ibuprofen 800 mg Tablet 800 mg PO TID Humira 40 mg/0.8 mL Syringe Kit 40 mg SUBCUT UD zinc 10 mg Tablet 22 mg PO QAM cholecalciferol (vitamin D3) [Vitamin D3] 50 mcg (2,000 unit) Tablet 50 mcg PO QAM multivitamin Tablet 1 tab PO QAM Admission Data Admit Date/Time: 10/22/22 14:50 Attending Provider: Bravo Marcelo Admit Provider: Bravo Marcelo Primary Care Provider: Anita Rao
[2022-10-23] MEDS ORDERED: dexAMETHasone 4 MG TAB PO SCH (08:00)
[2022-10-23] MEDS: DOCUSATE SODIUM 100 MG CAP PO SCH (08:53)
[2022-10-23] MEDS: ASPIRIN 81 MG ECTAB PO SCH (08:53)
[2022-10-23] MEDS ORDERED: NON-FORMULARY MEDICATION (Zinc 10 mg Tablet) PO SCH (09:00)
[2022-10-23] MEDS ORDERED: CHOLECALCIFEROL 1,000 UNITS 25 MCG TAB PO SCH (09:00)
[2022-10-23] MEDS ORDERED: MULTIVITAMIN TAB PO SCH (09:00)
[2022-10-23] MEDS ORDERED: NON-FORMULARY MEDICATION (Multivitamin Tablet) PO SCH (09:00)
== END 2022-10-23 12:49 | disposition home or self-care (01) ==
LOC: ASU 10:06 → 3E 10:06
DX: Z01.812 Encounter for preprocedural laboratory examination; Z01.810 Encounter for preprocedural cardiovascular examination; Z01.818 Encounter for other preprocedural examination; Z91.040 Latex allergy status; I45.10 Unspecified right bundle-branch block; Z87.891 Personal history of nicotine dependence; M17.11 Unilateral primary osteoarthritis, right knee